=== PATIENT | female | born 1985 | race Caucasian/White ===

== ENCOUNTER 2019-03-06 08:17 | Emergency (ER) | payer OTHER ==
[2019-03-06 08:21] VITALS: BP 140/85; PULSE 75; RESP 16; TEMP 98
[2019-03-06] MEDS ORDERED: ACET/COD 300 MG/30 MG STARTER PACK 6 TAB BTL PO STA (08:36)
--- NOTE | 2019-03-06 08:36 | ED ---
Back Pain HPI - General Chief Complaint: Back Pain/Injury Stated Complaint: back pain Time Seen by Provider: 03/06/19 08:23 Source: patient, RN notes reviewed Mode of arrival: ambulatory Limitations: no limitations - History of Present Illness Initial Comments: 34-year-old female presents emergency Department with chief complaint of low back pain. 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 Patient states that she's been working morning and noticed some low back spasms. She denies any bowel bladder and incontinence or retention. Denies any dysuria, hematuria. She has no abdominal complaints. Patient states it is better with rest and stretching. - Related Data Home Medications Medication Instructions Recorded Confirmed Cyclobenzaprine [Flexeril] 5 mg PO DAILY PRN 03/06/19 03/06/19 Previous Rx's Medication Instructions Recorded Cyclobenzaprine [Flexeril] 10 mg PO TID PRN #15 tab 03/06/19 Ibuprofen [Motrin] 800 mg PO Q6HR #30 tab 03/06/19 Allergies Allergy/AdvReac Type Severity Reaction Status Date / Time No Known Allergies Allergy Verified 03/06/19 08:46 Review of Systems ROS Statement: Those systems with pertinent positive or pertinent negative responses have been documented in the HPI. ROS Other: All systems not noted in ROS Statement are negative. Past Medical History Past Medical History: No Reported History Additional Past Medical History / Comment(s): migraines, Low back pain History of Any Multi-Drug Resistant Organisms: None Reported Past Surgical History: Section, Cholecystectomy Past Psychological History: No Psychological Hx Reported Smoking Status: Current some day smoker Past Alcohol Use History: None Reported Past Drug Use History: None Reported General Exam Limitations: no limitations General appearance: alert, in no apparent distress Head exam: Present: atraumatic, normocephalic, normal inspection Respiratory exam: Present: normal lung sounds bilaterally. Absent: respiratory distress, wheezes, rales, rhonchi, stridor Cardiovascular Exam: Present: regular rate, normal rhythm, normal heart sounds. Absent: systolic murmur, diastolic murmur, rubs, gallop, clicks GI/Abdominal exam: Present: soft, normal bowel sounds. Absent: distended, tenderness, guarding, rebound, rigid Extremities exam: Present: other (Lower extremity strength equal bilaterally, neurovascular intact with equal pedal pulses) Back exam: Present: full ROM, tenderness, muscle spasm, paraspinal tenderness, other (Mild discomfort with left straight leg raise). Absent: vertebral tenderness Neurological exam: Present: alert, oriented X3, CN II-XII intact, reflexes normal. Absent: motor sensory deficit Course Vital Signs 03/06/19 08:19 Temperature 98 F Pulse Rate 75 Respiratory 16 Rate Blood Pressure 140/85 O2 Sat by Pulse 98 Oximetry Medical Decision Making - Medical Decision Making 34-year-old female presented for low back pain. She has notable muscle spasms and paraspinal tenderness. This is consistent with a lumbar strain she has no red flag symptoms. Patient will started on conservative treatment with close follow-up. Disposition Clinical Impression: Strain of lumbar region Disposition: HOME SELF-CARE Condition: Stable Instructions (If sedation given, give patient instructions): Acute Low Back Pain (ED) Additional Instructions: Please return to the Emergency Department if symptoms worsen or any other concerns. Prescriptions: Cyclobenzaprine [Flexeril] 10 mg PO TID PRN #15 tab PRN Reason: Muscle Spasm Ibuprofen [Motrin] 800 mg PO Q6HR #30 tab Is patient prescribed a controlled substance at d/c from ED?: No Referrals: Marianela Dominguez MD [Primary Care Provider] - 1-2 days Time of Disposition: 08:35
== END 2019-03-06 08:42 | disposition home or self-care (01) ==
LOC: MERGE 08:17 → EC 08:17
DX: S39.012A Strain of muscle, fascia and tendon of lower back, initial encounter (principal); F17.200 Nicotine dependence, unspecified, uncomplicated
CPT/HCPCS: 99283

== ENCOUNTER 2019-05-25 10:02 | Emergency (ER) | payer OTHER ==
[2019-05-25 10:27] VITALS: BP 124/78; PULSE 69; RESP 16; TEMP 98.4
[2019-05-25] MEDS ORDERED: KETOROLAC 30 MG/ML 1 ML VIAL IM STA (10:41)
--- NOTE | 2019-05-25 10:43 | ED ---
Lower Extremity Injury HPI - General Chief Complaint: Extremity Injury, Lower Stated Complaint: Ankle Pain Time Seen by Provider: 05/25/19 10:29 Source: patient, RN notes reviewed, old records reviewed Mode of arrival: ambulatory Limitations: no limitations - History of Present Illness Initial Comments: Patient is a 34-year-old female, she presents emergency department today for evaluation for left ankle and foot pain has been chronic for 5 years. Patient reports she's had no recent falls or trauma. Patient states that she's been seen multiple times for the same thing. She has not followed up with orthopedic. Patient was last here in November of this year with complaints ankle pain. Patient states that she has an upcoming appointment with her primary care doctor who was with the set up referrals to see orthopedic. Patient states that she's not been wearing an Aurelio wrap or compression stocking and she was told prior 2. Patient states that her Motrin 600s are not helping and she is hoping for a prescription for Motrin 800s. Patient states that she has had no other significant complaints at this time. Denies stepping on anything. Patient states that she has a note for work today. - Related Data Home Medications Medication Instructions Recorded Confirmed Cyclobenzaprine [Flexeril] 5 mg PO DAILY PRN 03/06/19 03/06/19 Previous Rx's Medication Instructions Recorded Cyclobenzaprine [Flexeril] 10 mg PO TID PRN #15 tab 03/06/19 Ibuprofen [Motrin] 800 mg PO Q6HR #30 tab 03/06/19 Ibuprofen 800 mg PO TID #30 tablet 05/25/19 Allergies Allergy/AdvReac Type Severity Reaction Status Date / Time No Known Allergies Allergy Verified 05/25/19 10:27 Review of Systems ROS Statement: Those systems with pertinent positive or pertinent negative responses have been documented in the HPI. ROS Other: All systems not noted in ROS Statement are negative. Past Medical History Past Medical History: No Reported History Additional Past Medical History / Comment(s): migraines, Low back pain History of Any Multi-Drug Resistant Organisms: None Reported Past Surgical History: Section, Cholecystectomy Past Psychological History: No Psychological Hx Reported Smoking Status: Current some day smoker Past Alcohol Use History: None Reported Past Drug Use History: None Reported General Exam - General Exam Comments Initial Comments: 34-year-old female. Alert and oriented 3. No distress. Limitations: no limitations General appearance: alert, in no apparent distress Head exam: Present: atraumatic, normocephalic, normal inspection Eye exam: Present: normal appearance, PERRL, EOMI. Absent: scleral icterus, conjunctival injection, periorbital swelling ENT exam: Present: normal exam, mucous membranes moist Neck exam: Present: normal inspection. Absent: tenderness, meningismus, lymphadenopathy Respiratory exam: Present: normal lung sounds bilaterally. Absent: respiratory distress, wheezes, rales, rhonchi, stridor Cardiovascular Exam: Present: regular rate, normal rhythm, normal heart sounds. Absent: systolic murmur, diastolic murmur, rubs, gallop, clicks GI/Abdominal exam: Present: soft, normal bowel sounds. Absent: distended, tenderness, guarding, rebound, rigid Left Lower Leg exam: Present: normal inspection, full ROM. Absent: abrasion Ankle exam: Present: full ROM, swelling (Patient has minimal swelling over the lateral malleolus. Patient has no ecchymosis. Full range of motion of the toes and ankle.). Absent: normal inspection Foot/Toe exam: Present: normal inspection, full ROM Back exam: Present: normal inspection Neurological exam: Present: alert, oriented X3, CN II-XII intact Psychiatric exam: Present: normal affect, normal mood Skin exam: Present: warm, dry, intact, normal color. Absent: rash Course Vital Signs 05/25/19 10:24 Temperature 98.4 F Pulse Rate 69 Respiratory 16 Rate Blood Pressure 124/78 O2 Sat by Pulse 97 Oximetry Medical Decision Making - Medical Decision Making Patient is a 34-year-old female presents emergency department today with intermittent and chronic left ankle and foot pain. Patient reports that she isn't having this pain off and on for 5 years. Denies any fall or trauma. 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 Patient at this time states that she has not followed up with family development extension specialist that she was instructed to on her last multiple visits to ER. Patient states that she see her primary care doctor next week for hopeful referral. Patient at this time has no history of trauma. Discussed that x-rays are not, showing any further change in this time without any new fall or trauma. Discussed the Patient needs to follow-up with orthopedic for chronic pain was in the ankle. Patient moved given Aurelio wrap, Motrin 800s. Given IM Toradol this time. I discussed that she can return to the emergency department if any alarming signs or symptoms occur. She also requests a work note. All questions were answered her parents were discussed. Disposition Clinical Impression: Chronic pain of left ankle Disposition: HOME SELF-CARE Condition: Good Instructions (If sedation given, give patient instructions): Ankle Sprain (ED), Swollen Joint (ED), Arthralgia (ED) Additional Instructions: Patient is to rest, ice, wear the compression stockings, and elevate the ankle. Patient to take Motrin for pain. Patient should follow-up with family development extension specialist as discussed. Return to the emergency department if any alarming signs or symptoms occur. Prescriptions: Ibuprofen 800 mg PO TID #30 tablet Is patient prescribed a controlled substance at d/c from ED?: No Referrals: Marianela Dominguez MD [Primary Care Provider] - 1-2 days Clive Birch MD [Medical Doctor] - 1-2 days Time of Disposition: 10:42
== END 2019-05-25 11:00 | disposition home or self-care (01) ==
LOC: EC 10:02
DX: G89.29 Other chronic pain (principal); M25.572 Pain in left ankle and joints of left foot; F17.200 Nicotine dependence, unspecified, uncomplicated
CPT/HCPCS: 99283; 96372; J1885

== ENCOUNTER 2019-05-31 16:59 | Emergency (ER) | payer OTHER ==
[2019-05-31 17:07] VITALS: BP 128/81; PULSE 80; RESP 16; TEMP 98.1
[2019-05-31] MEDS ORDERED: POLYMYXIN B-TRIMETHOPRIM SULF (10,000-1) OPHTH DROPS 10 ML BTL RIGHT EYE STA (17:20)
[2019-05-31] MEDS ORDERED: AMOXIC-POT CLAV 875-125MG 1 EACH TAB PO STA (17:20)
--- NOTE | 2019-05-31 17:22 | ED ---
Eye Problem HPI - General Chief complaint: Eye Problems Stated complaint: eye infection Time Seen by Provider: 05/31/19 17:10 Source: patient Mode of arrival: ambulatory Limitations: no limitations - History of Present Illness Initial comments: This is a 32-year-old female the ER for evaluation patient coming of her right eye pain blurry vision some drainage today. Patient woke up with the symptoms that progressed. She also swelling around the eye to her eyelids and leave that she had some drainage from the lateral aspect of the eye. No significant changes or vision loss no severe pain or itching. No fevers. No cough or congestion. Patient denies history of similar complaints does not look contacts MD chief complaint: eye pain (Right eye), other (Blurry vision drainage and swelling) -: hour(s) Onset Description: gradual Location: right eye Place: home If Injury: none Eye Symptoms: burning, redness, itching, discharge, blurry vision Severity: mild Severity scale (1-10): 2 If Pain, Quality: burning Consistency: intermittent Associated Symptoms: none Treatments Prior to Arrival: none - Related Data Home Medications Medication Instructions Recorded Confirmed Ibuprofen [Motrin] 800 mg PO Q6HR PRN 05/31/19 05/31/19 Previous Rx's Medication Instructions Recorded Amoxic-Pot Clav 875-125Mg 1 tab PO Q12HR #20 tablet 05/31/19 [Augmentin 875-125] Allergies Allergy/AdvReac Type Severity Reaction Status Date / Time No Known Allergies Allergy Verified 05/31/19 17:17 Review of Systems ROS Statement: Those systems with pertinent positive or pertinent negative responses have been documented in the HPI. ROS Other: All systems not noted in ROS Statement are negative. Past Medical History Past Medical History: No Reported History Additional Past Medical History / Comment(s): migraines, Low back pain History of Any Multi-Drug Resistant Organisms: None Reported Past Surgical History: Section, Cholecystectomy Past Psychological History: No Psychological Hx Reported Smoking Status: Current every day smoker Past Alcohol Use History: None Reported Past Drug Use History: None Reported General Exam Limitations: no limitations General appearance: alert, in no apparent distress Head exam: Present: atraumatic, normocephalic, normal inspection Eye exam: Present: normal appearance, PERRL, EOMI. Absent: scleral icterus, conjunctival injection, periorbital swelling Pupils: Present: other (Right eye does have some drainage and swelling, no tenderness ptosis no loss of vision) ENT exam: Present: normal exam, mucous membranes moist Neck exam: Present: normal inspection. Absent: tenderness, meningismus, lymphadenopathy Respiratory exam: Present: normal lung sounds bilaterally. Absent: respiratory distress, wheezes, rales, rhonchi, stridor Cardiovascular Exam: Present: regular rate, normal rhythm, normal heart sounds. Absent: systolic murmur, diastolic murmur, rubs, gallop, clicks GI/Abdominal exam: Present: soft, normal bowel sounds. Absent: distended, tenderness, guarding, rebound, rigid Extremities exam: Present: normal inspection, full ROM, normal capillary refill. Absent: tenderness, pedal edema, joint swelling, calf tenderness Back exam: Present: normal inspection Neurological exam: Present: alert, oriented X3, CN II-XII intact Psychiatric exam: Present: normal affect, normal mood Skin exam: Present: warm, dry, intact, normal color. Absent: rash Course Vital Signs 05/31/19 17:05 Temperature 98.1 F Pulse Rate 80 Respiratory 16 Rate Blood Pressure 128/81 O2 Sat by Pulse 98 Oximetry - Reevaluation(s) Reevaluation #1: 05/31/19 17:40 Medical records reviewed Reevaluation #2: 05/31/19 17:40 Patient given instructions return to ED if vision changes Medical Decision Making - Medical Decision Making 32 female the ER for evaluation right eye pain and swelling. No fevers. No proptosis. ExtraOCularMotion is full range of motion normal, patient given drops and antibiotics and can be discharged home Disposition Clinical Impression: Bacterial conjunctivitis, Preseptal cellulitis of right eye, Edema of right orbit, Conjunctivitis, right eye Disposition: HOME SELF-CARE Condition: Good Instructions (If sedation given, give patient instructions): Periorbital Cellulitis in Adults (ED), Conjunctivitis (ED) Prescriptions: Amoxic-Pot Clav 875-125Mg [Augmentin 875-125] 1 tab PO Q12HR #20 tablet Is patient prescribed a controlled substance at d/c from ED?: No Referrals: Marianela Dominugez MD [Primary Care Provider] - 1-2 days
== END 2019-05-31 17:45 | disposition home or self-care (01) ==
LOC: EC 16:59
DX: L03.213 Periorbital cellulitis (principal); H10.89 Other conjunctivitis; H05.221 Edema of right orbit; F17.200 Nicotine dependence, unspecified, uncomplicated
CPT/HCPCS: 99283

== ENCOUNTER 2019-06-11 16:02 | Emergency (ER) | payer OTHER ==
[2019-06-11] MEDS ORDERED: SODIUM CHLORIDE 0.9% 1,000 ML IV STA (17:14)
--- NOTE | 2019-06-11 17:16 | ED ---
Dizziness HPI - General Chief Complaint: Dizziness Stated Complaint: dizzy Time Seen by Provider: 06/11/19 16:30 Source: patient, RN notes reviewed, old records reviewed Mode of arrival: ambulatory Limitations: no limitations - History of Present Illness Initial Comments: This is a 34-year-old female the ER for evaluation shortness a for evaluation regards to chest pain. Patient is nonverbal. This feels lightheaded and dizzy. Patient does admit to being a plasma donor. She states she is about 2 times a week she also gives 1. Since then her symptoms have progressed) versus not herself. No fevers or no chills noted. No chest pain abdominal pain, no nausea vomiting or diaphoresis. MD Complaint: dizziness, lightheadedness -: days(s) Timing: gradual onset Description: lightheadedness History of Same: Yes History of Trauma: No Severity: mild Improves With: remaining still Worsens With: movement Associated Symptoms: denies other symptoms - Related Data Home Medications Medication Instructions Recorded Confirmed Ibuprofen [Motrin] 800 mg PO Q6HR PRN 05/31/19 06/11/19 Escitalopram [Lexapro] 5 mg PO DAILY 06/11/19 06/11/19 Qud-Mbrt-Rtzuc Acid 1 cap PO HS 06/11/19 06/11/19 [-U Capsule (formulary)] Previous Rx's Medication Instructions Recorded Amoxic-Pot Clav 875-125Mg 1 tab PO Q12HR #20 tablet 05/31/19 [Augmentin 875-125] Nitrofurantoin Monohyd/M-Cryst 100 mg PO Q12HR #10 cap 06/11/19 [Macrobid] Allergies Allergy/AdvReac Type Severity Reaction Status Date / Time No Known Allergies Allergy Verified 06/11/19 16:53 Review of Systems ROS Statement: Those systems with pertinent positive or pertinent negative responses have been documented in the HPI. ROS Other: All systems not noted in ROS Statement are negative. Past Medical History Past Medical History: No Reported History Additional Past Medical History / Comment(s): migraines, Low back pain History of Any Multi-Drug Resistant Organisms: None Reported Past Surgical History: Section, Cholecystectomy Past Psychological History: No Psychological Hx Reported Smoking Status: Current every day smoker Past Alcohol Use History: None Reported Past Drug Use History: None Reported General Exam Limitations: no limitations General appearance: alert, in no apparent distress Head exam: Present: atraumatic, normocephalic, normal inspection Eye exam: Present: normal appearance, EOMI. Absent: scleral icterus, conjunctival injection, periorbital swelling ENT exam: Present: normal exam, mucous membranes moist Neck exam: Present: normal inspection. Absent: tenderness, meningismus, lymphadenopathy Respiratory exam: Present: normal lung sounds bilaterally. Absent: respiratory distress, wheezes, rales, rhonchi, stridor Cardiovascular Exam: Present: regular rate, normal rhythm, normal heart sounds. Absent: systolic murmur, diastolic murmur, rubs, gallop, clicks GI/Abdominal exam: Present: soft, normal bowel sounds. Absent: distended, tenderness, guarding, rebound, rigid Extremities exam: Present: normal inspection, full ROM, normal capillary refill. Absent: tenderness, pedal edema, joint swelling, calf tenderness Back exam: Present: normal inspection Neurological exam: Present: alert, oriented X3, CN II-XII intact Psychiatric exam: Present: normal affect, normal mood Skin exam: Present: warm, dry, intact, normal color. Absent: rash Course Vital Signs 06/11/19 06/11/19 06/11/19 16:13 17:31 18:00 Temperature 98.2 F Pulse Rate 75 67 63 Respiratory 16 16 16 Rate Blood Pressure 111/62 130/55 O2 Sat by Pulse 99 100 98 Oximetry 06/11/19 06/11/19 19:00 19:44 Temperature 97.9 F Pulse Rate 61 62 Respiratory 18 18 Rate Blood Pressure 98/55 102/52 O2 Sat by Pulse 98 98 Oximetry - Reevaluation(s) Reevaluation #1: 06/11/19 17:16 Medical record is reviewed EKG Findings - EKG Comments: EKG Findings:: EKG shows sinus rhythm is a 22-year-old Bengali 0346, QTc 426 Medical Decision Making - Medical Decision Making 34 female with dizziness and lightheadedness, symptoms likely from recurrent plasma donation as well as deterioration. Patient symptoms are resolving can be discharged patient does have urinary tract infection on UA, patient be discharged on antibiotics - Lab Data Result diagrams: 06/11/19 17:27 06/11/19 17:27 Lab Results 06/11/19 06/11/19 06/11/19 Range/Units 17:27 17:27 19:02 WBC 14.3 H (3.8-10.6) k/uL RBC 5.06 (3.80-5.40) m/uL Hgb 15.8 (11.4-16.0) gm/dL Hct 50.1 H (34.0-46.0) % MCV 99.0 (80.0-100.0) fL MCH 31.3 (25.0-35.0) pg MCHC 31.7 (31.0-37.0) g/dL RDW 12.5 (11.5-15.5) % Plt Count 203 (150-450) k/uL Neutrophils % 74 % Lymphocytes % 19 % Monocytes % 4 % Eosinophils % 3 % Basophils % 1 % Neutrophils # 10.5 H (1.3-7.7) k/uL Lymphocytes # 2.7 (1.0-4.8) k/uL Monocytes # 0.5 (0-1.0) k/uL Eosinophils # 0.4 (0-0.7) k/uL Basophils # 0.1 (0-0.2) k/uL Sodium 139 (137-145) mmol/L Potassium 4.4 (3.5-5.1) mmol/L Chloride 105 (98-107) mmol/L Carbon Dioxide 29 (22-30) mmol/L Anion Gap 5 mmol/L BUN 15 (7-17) mg/dL Creatinine 0.74 (0.52-1.04) mg/dL Est GFR (CKD-EPI)AfAm >90 (>60 ml/min/1.73 sqM) Est GFR (CKD-EPI)NonAf >90 (>60 ml/min/1.73 sqM) Glucose 98 (74-99) mg/dL Calcium 8.6 (8.4-10.2) mg/dL Phosphorus 3.8 (2.5-4.5) mg/dL Magnesium 2.1 (1.6-2.3) mg/dL Total Bilirubin 0.3 (0.2-1.3) mg/dL AST 21 (14-36) U/L ALT 27 (9-52) U/L Alkaline Phosphatase 48 (38-126) U/L Total Protein 5.9 L (6.3-8.2) g/dL Albumin 3.7 (3.5-5.0) g/dL Urine Color Yellow Urine Appearance Cloudy H (Clear) Urine pH 5.0 (5.0-8.0) Ur Specific [place] 1.024 (1.001-1.035) Urine Protein Negative (Negative) Urine Glucose (UA) Negative (Negative) Urine Ketones Negative (Negative) Urine Blood Negative (Negative) Urine Nitrite Negative (Negative) Urine Bilirubin Negative (Negative) Urine Urobilinogen <2.0 (<2.0) mg/dL Ur Leukocyte Esterase Large H (Negative) Urine RBC 1 (0-5) /hpf Urine WBC 35 H (0-5) /hpf Ur Squamous Epith Cells 11 H (0-4) /hpf Amorphous Sediment Rare H (None) /hpf Urine Bacteria Occasional H (None) /hpf Urine Mucus Few H (None) /hpf Disposition Clinical Impression: Dehydration, Dizziness, UTI (urinary tract infection) Disposition: HOME SELF-CARE Condition: Good Instructions (If sedation given, give patient instructions): Dizziness (ED), Urinary Tract Infection in Women (ED) Prescriptions: Nitrofurantoin Monohyd/M-Cryst [Macrobid] 100 mg PO Q12HR #10 cap Is patient prescribed a controlled substance at d/c from ED?: No Referrals: Marianela Dominguez MD [Primary Care Provider] - 1-2 days
[2019-06-11 17:40] LABS: Basophils # (A) 0.1 k/uL (0-0.2); Basophils % (A) 1 %; Eosinophils # (A) 0.4 k/uL (0-0.7); Eosinophils % (A) 3 %; HCT 50.1 % (34.0-46.0); HGB 15.8 gm/dL (11.4-16.0); Lymphocytes # (A) 2.7 k/uL (1.0-4.8); Lymphocytes % (A) 19 %; MCH 31.3 pg (25.0-35.0); MCHC 31.7 g/dL (31.0-37.0); Monocytes # (A) 0.5 k/uL (0-1.0); Monocytes % (A) 4 %; Neutrophils # (A) 10.5 k/uL (1.3-7.7); Neutrophils % (A) 74 %; Platelet Count 203 k/uL (150-450); RBC 5.06 m/uL (3.80-5.40); RDW 12.5 % (11.5-15.5); WBC 14.3 k/uL (3.8-10.6)
[2019-06-11 17:50] LABS: ALT 27 U/L (9-52); AST 21 U/L (14-36); African American GFR (CKD) >90 (>60 ml/min/1.73 sqM); Albumin 3.7 g/dL (3.5-5.0); Alkaline Phosphatase 48 U/L (38-126); Anion Gap 5 mmol/L; Blood Urea Nitrogen 15 mg/dL (7-17); Calcium 8.6 mg/dL (8.4-10.2); Carbon Dioxide 29 mmol/L (22-30); Chloride 105 mmol/L (98-107); Glucose 98 mg/dL (74-99); Magnesium 2.1 mg/dL (1.6-2.3); Phosphorus 3.8 mg/dL (2.5-4.5); Potassium 4.4 mmol/L (3.5-5.1); Sodium 139 mmol/L (137-145); Total Bilirubin 0.3 mg/dL (0.2-1.3); Total Protein 5.9 g/dL (6.3-8.2)
[2019-06-11 19:03] VITALS: RESP 18
[2019-06-11 19:46] VITALS: BP 102/52; PULSE 62; TEMP 97.9
[2019-06-11 19:55] LABS: Amorphous Sediment,Urine Rare /hpf; Appearance,Urine Cloudy (Clear); Bacteria,Urine Occasional /hpf; Bilirubin,Urine Negative (Negative); Blood,Urine Negative (Negative); Color,Urine Yellow; Glucose,Urine (UA) Negative (Negative); Ketones,Urine Negative (Negative); Leukocyte Esterase,Urine Large (Negative); Mucus,Urine Few /hpf; Nitrite,Urine Negative (Negative); Protein,Urine Negative (Negative); RBC,Urine 1 /hpf (0-5); Specific Gravity,Urine 1.024 (1.001-1.035); Squamous Epithelial Cell,Urine 11 /hpf (0-4); Urobilinogen,Urine <2.0 mg/dL (<2.0); WBC,Urine 35 /hpf (0-5)
[2019-06-11] MEDS ORDERED: cefTRIAXone IN SWFI 1,000 MG/10 ML SYRINGE IVP STA (20:00)
== END 2019-06-11 20:38 | disposition home or self-care (01) ==
LOC: EC 16:02
DX: E86.0 Dehydration (principal); N39.0 Urinary tract infection, site not specified; R07.9 Chest pain, unspecified; F17.200 Nicotine dependence, unspecified, uncomplicated
CPT/HCPCS: 36415; 93005; 80053; 83735; 84100; 85025; 81001; 99284; 96374; 96361 ×3; J0696

== ENCOUNTER → 2019-06-26 | Outpatient (CLI) | payer OTHER ==
--- NOTE | 2019-06-26 08:12 | US ---
EXAMINATION TYPE: US pelvic complete DATE OF EXAM: 06/26/2019 COMPARISON: NONE CLINICAL HISTORY: N92.6 ABN MENSES,N94.6 PAINFUL MENSTRAL PERIODS. TECHNIQUE: Transvaginal (TV) and Transabdominal (TA) . Transabdominal sonographic images of the pel vis were acquired. Transvaginal sonographic images were medically necessary to better assess the fol lowing anatomy: Uterus Date of LMP: 06/19/19 EXAM MEASUREMENTS: Uterus: 10.1 x 4.8 x 3.8 cm Endometrial Stripe: 0.3 cm Right Ovary: 3.8 x 2.9 x 1.4 cm Left Ovary: 2.6 x 3.3 x 2.1 cm 1. Uterus: Anteverted Large in size, multiple cervical cysts. Largest = 1.2 x 1.4 x 1.1 cm 2. Endometrium: wnl 3. Right Ovary: with follicles. Largest = 1.1 x 1.0 x 1.0 cm 4. Left Ovary: With follicles. 5. Bilateral Adnexa: wnl 6. Posterior cul-de-sac: wnl Difficult to evaluate ovaries on transvaginal exam. IMPRESSION: 1. Bilateral ovarian follicles. 2. Multiple cervical nabothian cysts.
== END | disposition home or self-care (01) ==
LOC: RADUSWWP 06:53
PROVIDERS: ATTEND Family Medicine
DX: N88.8 Other specified noninflammatory disorders of cervix uteri (principal); N83.01 Follicular cyst of right ovary; N83.02 Follicular cyst of left ovary; N94.6 Dysmenorrhea, unspecified
CPT/HCPCS: 76830; 76856

== ENCOUNTER 2019-07-05 15:51 | Emergency (ER) | payer OTHER ==
[2019-07-05 15:58] VITALS: BP 110/70; PULSE 84; RESP 18; TEMP 99.1
[2019-07-05] MEDS ORDERED: KETOROLAC 60 MG/2 ML VIAL IM STA (16:07)
--- NOTE | 2019-07-05 16:11 | ED ---
Back Pain HPI - General Chief Complaint: Back Pain/Injury Stated Complaint: Back pain Time Seen by Provider: 07/05/19 16:04 Source: patient, RN notes reviewed Limitations: no limitations - History of Present Illness Initial Comments: 34-year-old female presents emergency Department chief complaint low back pain. Patient states that the pain started last couple days. Patient felt that she injured it at work. She works as a integrated marketing specialist. Denies any bowel bladder incontinence or retention. Denies any saddle anesthesias. Patient states that it's in her left low back. Patient has not taken any medications for this. She states that she's received Toradol the past and this greatly helped. - Related Data Home Medications Medication Instructions Recorded Confirmed Ibuprofen [Motrin] 800 mg PO Q6HR PRN 05/31/19 06/11/19 Escitalopram [Lexapro] 5 mg PO DAILY 06/11/19 06/11/19 Mbp-Evac-Xjwyd Acid 1 cap PO HS 06/11/19 06/11/19 [-U Capsule (formulary)] Previous Rx's Medication Instructions Recorded Amoxic-Pot Clav 875-125Mg 1 tab PO Q12HR #20 tablet 05/31/19 [Augmentin 875-125] Nitrofurantoin Monohyd/M-Cryst 100 mg PO Q12HR #10 cap 06/11/19 [Macrobid] Cyclobenzaprine [Flexeril] 10 mg PO TID PRN #15 tab 07/05/19 Ibuprofen [Motrin] 600 mg PO Q8HR PRN #30 tab 07/05/19 Allergies Allergy/AdvReac Type Severity Reaction Status Date / Time No Known Allergies Allergy Verified 07/05/19 15:58 Review of Systems ROS Statement: Those systems with pertinent positive or pertinent negative responses have been documented in the HPI. ROS Other: All systems not noted in ROS Statement are negative. Past Medical History Past Medical History: No Reported History Additional Past Medical History / Comment(s): migraines, Low back pain History of Any Multi-Drug Resistant Organisms: None Reported Past Surgical History: Section, Cholecystectomy Past Psychological History: No Psychological Hx Reported Smoking Status: Current every day smoker Past Alcohol Use History: None Reported Past Drug Use History: None Reported General Exam Limitations: no limitations General appearance: alert, in no apparent distress Head exam: Present: atraumatic, normocephalic, normal inspection ENT exam: Present: normal exam, mucous membranes moist Neck exam: Present: normal inspection, full ROM. Absent: tenderness, meningismus, lymphadenopathy Respiratory exam: Present: normal lung sounds bilaterally. Absent: respiratory distress, wheezes, rales, rhonchi, stridor Cardiovascular Exam: Present: regular rate, normal rhythm, normal heart sounds. Absent: systolic murmur, diastolic murmur, rubs, gallop, clicks GI/Abdominal exam: Present: soft, normal bowel sounds. Absent: distended, tenderness, guarding, rebound, rigid Extremities exam: Present: other (Lower extremity strength equal bilaterally neurovascular intact) Back exam: Present: normal inspection, full ROM, tenderness (Mild left lower), paraspinal tenderness. Absent: vertebral tenderness Neurological exam: Present: alert, oriented X3, CN II-XII intact, reflexes normal. Absent: motor sensory deficit Course Vital Signs 07/05/19 15:56 Temperature 99.1 F Pulse Rate 84 Respiratory 18 Rate Blood Pressure 110/70 O2 Sat by Pulse 100 Oximetry Medical Decision Making - Medical Decision Making 34-year-old female presented for low back pain. Patient is a typical lumbar strain with no red flag symptoms. Patient is given Toradol will be discharged with medications return parameters were discussed. We did discuss daily stretching. - Lab Data Lab Results 07/05/19 07/05/19 Range/Units 16:11 16:11 Urine Color Yellow Urine Appearance Clear (Clear) Urine pH 5.0 (5.0-8.0) Ur Specific [place] 1.024 (1.001-1.035) Urine Protein Negative (Negative) Urine Glucose (UA) Negative (Negative) Urine Ketones Negative (Negative) Urine Blood Negative (Negative) Urine Nitrite Negative (Negative) Urine Bilirubin Negative (Negative) Urine Urobilinogen <2.0 (<2.0) mg/dL Ur Leukocyte Esterase Large H (Negative) Urine RBC 1 (0-5) /hpf Urine WBC 3 (0-5) /hpf Ur Squamous Epith Cells 2 (0-4) /hpf Urine Mucus Rare H (None) /hpf Urine HCG, Qual Not Detected (Not Detectd) Disposition Clinical Impression: Strain of lumbar region Disposition: HOME SELF-CARE Condition: Stable Instructions (If sedation given, give patient instructions): Acute Low Back Pain (ED) Additional Instructions: Please return to the Emergency Department if symptoms worsen or any other concerns. Prescriptions: Cyclobenzaprine [Flexeril] 10 mg PO TID PRN #15 tab PRN Reason: Muscle Spasm Ibuprofen [Motrin] 600 mg PO Q8HR PRN #30 tab PRN Reason: Pain Is patient prescribed a controlled substance at d/c from ED?: No Referrals: Marianela Dominguez MD [Primary Care Provider] - 1-2 days Time of Disposition: 16:11
[2019-07-05 16:20] LABS: Appearance,Urine Clear (Clear); Bilirubin,Urine Negative (Negative); Blood,Urine Negative (Negative); Color,Urine Yellow; Glucose,Urine (UA) Negative (Negative); Ketones,Urine Negative (Negative); Leukocyte Esterase,Urine Large (Negative); Mucus,Urine Rare /hpf; Nitrite,Urine Negative (Negative); Protein,Urine Negative (Negative); RBC,Urine 1 /hpf (0-5); Specific Gravity,Urine 1.024 (1.001-1.035); Squamous Epithelial Cell,Urine 2 /hpf (0-4); Urobilinogen,Urine <2.0 mg/dL (<2.0)
[2019-07-05] MEDS ORDERED: ACET/COD 300 MG/30 MG STARTER PACK 6 TAB BTL PO STA (16:35)
== END 2019-07-05 16:57 | disposition home or self-care (01) ==
LOC: EC 15:51
DX: S39.012A Strain of muscle, fascia and tendon of lower back, initial encounter (principal); F17.200 Nicotine dependence, unspecified, uncomplicated; Z79.899 Other long term (current) drug therapy; X58.XXXA Exposure to other specified factors, initial encounter
CPT/HCPCS: 81001; 81025; 99283; 96372; J1885

== ENCOUNTER 2019-07-20 09:48 | Emergency (ER) | payer OTHER ==
[2019-07-20 10:00] VITALS: TEMP 97.3
--- NOTE | 2019-07-20 10:12 | ED ---
URI HPI - General Chief Complaint: Upper Respiratory Infection Stated Complaint: chest congestion/wheezing Time Seen by Provider: 07/20/19 10:05 Source: patient Mode of arrival: ambulatory Limitations: no limitations - History of Present Illness Initial Comments: Patient is a 34-year-old female presenting to the emergency Department with complaints of a cough 3 days. Patient states she feels like she has been wheezing for the past month but then approximately 3-4 days ago she started having a cough, nasal congestion, phlegm production. Patient states her phlegm is green to yellow colored. Patient denies any fever, chills, nausea, vomiting, diarrhea. Patient denies shortness of breath. Patient does admit to being every day smoker. She has tried nscz-[id number]-[id number] medication for her symptoms however it is not helping. Patient has no other complaints today. Upon arrival to ER, her vital signs are stable. - Related Data Home Medications Medication Instructions Recorded Confirmed Ibuprofen [Motrin] 800 mg PO Q6HR PRN 05/31/19 07/05/19 Escitalopram [Lexapro] 5 mg PO DAILY 06/11/19 07/05/19 Cjh-Ilig-Dpwmq Acid 1 cap PO HS 06/11/19 07/05/19 [-U Capsule (formulary)] Previous Rx's Medication Instructions Recorded Cyclobenzaprine [Flexeril] 10 mg PO TID PRN #15 tab 07/05/19 Ibuprofen [Motrin] 600 mg PO Q8HR PRN #30 tab 07/05/19 methylPREDNISolone [Medrol Dose 4 mg PO DIRECTED #1 pack 07/20/19 Pack] Allergies Allergy/AdvReac Type Severity Reaction Status Date / Time No Known Allergies Allergy Verified 07/20/19 10:00 Review of Systems ROS Statement: Those systems with pertinent positive or pertinent negative responses have been documented in the HPI. ROS Other: All systems not noted in ROS Statement are negative. Past Medical History Past Medical History: No Reported History Additional Past Medical History / Comment(s): migraines, Low back pain History of Any Multi-Drug Resistant Organisms: None Reported Past Surgical History: Section, Cholecystectomy Past Psychological History: No Psychological Hx Reported Smoking Status: Current some day smoker Past Alcohol Use History: None Reported Past Drug Use History: None Reported General Exam - General Exam Comments Initial Comments: GENERAL: Well-appearing, well-nourished and in no acute distress. HEAD: Atraumatic, normocephalic. EYES: Pupils equal round and reactive to light, extraocular movements intact, sclera anicteric, conjunctiva are normal. ENT: TMs normal, nares patent, oropharynx clear without exudates. Moist mucous membranes. NECK: Normal range of motion, supple without lymphadenopathy or JVD. LUNGS: Breath sounds clear to auscultation bilaterally and equal. No wheezes rales or rhonchi. HEART: Regular rate and rhythm without murmurs, rubs or gallops. ABDOMEN: Soft, nontender, normoactive bowel sounds. No guarding, no rebound. No masses appreciated. EXTREMITIES: Normal range of motion, no pitting or edema. No clubbing or cyanosis. PSYCH: Normal mood, normal affect. SKIN: Warm, Dry, normal turgor, no rashes or lesions noted. Limitations: no limitations Course Vital Signs 07/20/19 09:56 Temperature 97.3 F L Pulse Rate 66 Respiratory 18 Rate Blood Pressure 126/64 O2 Sat by Pulse 95 Oximetry Medical Decision Making - Medical Decision Making Patient is a 34-year-old female presenting with a cough and upper respiratory type symptoms for 3 days. No fever, chills. Vital signs are stable upon arrival. Exam is unremarkable today. Chest x-ray reveals no acute a bnormalities. Discussed with patient this is most likely bronchitis or viral upper respiratory infection. Patient will be placed on steroids for her cough. Patient will continue with idrw-rjx-vtishpe cough medication. Patient is stable for discharge at this time and she is in agreement with this plan of care. Return parameters were discussed with the patient she verbalized understanding. Discussed with patient to stop smoking. Work note was given for today. Case discussed with Dr. Campbell. Disposition Clinical Impression: Bronchitis Disposition: HOME SELF-CARE Condition: Stable Instructions (If sedation given, give patient instructions): Acute Bronchitis (ED) Additional Instructions: Please return to the Emergency Department if symptoms worsen or any other concerns. Take steroids as prescribed. Follow-up with PCP as symptoms persist. Prescriptions: methylPREDNISolone [Medrol Dose Pack] 4 mg PO DIRECTED #1 pack Is patient prescribed a controlled substance at d/c from ED?: No Referrals: Marianela Dominguez MD [Primary Care Provider] - 1-2 days
--- NOTE | 2019-07-20 10:36 | XR ---
EXAMINATION TYPE: XR chest 2V DATE OF EXAM ORDERED: 07/20/2019 HISTORY: cough, wheezing x 1 month. REFERENCE: None. FINDINGS: The lungs are clear. Pleural spaces are clear. Heart size is normal. IMPRESSION: NORMAL CHEST.
[2019-07-20 10:56] VITALS: BP 120/73; PULSE 83; RESP 16
== END 2019-07-20 10:55 | disposition home or self-care (01) ==
LOC: EC 09:48
DX: J40 Bronchitis, not specified as acute or chronic (principal); F17.200 Nicotine dependence, unspecified, uncomplicated
CPT/HCPCS: 71046; 99284

== ENCOUNTER 2019-07-31 01:37 | Emergency (ER) | payer OTHER ==
[2019-07-31 01:45] VITALS: BP 126/64; PULSE 67; RESP 18; TEMP 98.1
--- NOTE | 2019-07-31 02:20 | XR ---
EXAMINATION TYPE: XR chest 2V DATE OF EXAM: 07/31/2019 COMPARISON: 07/20/2019 HISTORY: Cough TECHNIQUE: Frontal and lateral views of the chest are obtained. FINDINGS: Heart and mediastinum are normal. Lungs are clear. Diaphragm is normal. Bony thorax appear s normal. IMPRESSION: Normal chest. No change.
--- NOTE | 2019-07-31 02:26 | ED ---
URI HPI - General Chief Complaint: Upper Respiratory Infection Stated Complaint: URI Time Seen by Provider: 07/31/19 01:55 Source: patient Mode of arrival: ambulatory Limitations: no limitations - History of Present Illness Initial Comments: 34-year-old female presenting today for chief complaint of loss of voice cough. Patient states she last week she was diagnosed with bronchitis and put on a steroid. Patient states her cough is persistent. Continues to deny fevers. Denies any rash difficulty breathing hemoptysis leg swelling. Patient denies a ny chest pain. Patient states she is now beginning to lose her voice. She states she is a slight sore throat which she believes is from coughing. Patient denies abdominal pain nausea vomiting diarrhea. Patient has no other complaints upon arrival patient appears well no signs acute distress. Obvious upper respiratory symptoms with dry cough. - Related Data Home Medications Medication Instructions Recorded Confirmed Ibuprofen [Motrin] 800 mg PO Q6HR PRN 05/31/19 07/05/19 Escitalopram [Lexapro] 5 mg PO DAILY 06/11/19 07/05/19 Aie-Nrnl-Bzyyo Acid 1 cap PO HS 06/11/19 07/05/19 [-U Capsule (formulary)] Previous Rx's Medication Instructions Recorded Cyclobenzaprine [Flexeril] 10 mg PO TID PRN #15 tab 07/05/19 Ibuprofen [Motrin] 600 mg PO Q8HR PRN #30 tab 07/05/19 methylPREDNISolone [Medrol Dose 4 mg PO DIRECTED #1 pack 07/20/19 Pack] Allergies Allergy/AdvReac Type Severity Reaction Status Date / Time No Known Allergies Allergy Verified 07/31/19 01:44 Review of Systems ROS Statement: Those systems with pertinent positive or pertinent negative responses have been documented in the HPI. ROS Other: All systems not noted in ROS Statement are negative. Past Medical History Past Medical History: No Reported History Additional Past Medical History / Comment(s): migraines, Low back pain History of Any Multi-Drug Resistant Organisms: None Reported Past Surgical History: Section, Cholecystectomy Past Psychological History: No Psychological Hx Reported Smoking Status: Current every day smoker Past Alcohol Use History: None Reported Past Drug Use History: None Reported General Exam - General Exam Comments Initial Comments: General: The patient is awake and alert, in no distress, and does not appear acutely ill. Eye: +3 mm pupils are equal, round and reactive to light, extra-ocular movements are intact. No nystagmus. There is normal conjunctiva bilaterally. No signs of icterus. No photophobia Ears, nose, mouth and throat: There are moist mucous membranes and no oral lesions. Oropharynx was not erythematous there is no tonsillar enlargement exudates or lesions. Uvula midline. Tympanic membranes are not erythematous or is no effusions bulging or retraction. No tenderness to palpation of the mastoid. No anterior cervical lymphadenopathy. Rhinorrhea, clear and bilateral nares. No tripoding, no drooling. Voice appears raspy Neck: The neck is supple, there is no tenderness or JVD. No nuchal rigidity Cardiovascular: There is a regular rate and rhythm. No murmur, rub or gallop is appreciated. Respiratory: Lungs are clear to auscultation, respirations are non-labored, breath sounds are equal. No wheezes, stridor, rales, or rhonchi. No retractions or abdominal breathing. Gastrointestinal: Soft, non-distended, non-tender abdomen without masses or organomegaly noted. There is no rebound or guarding present. Bowel sounds are unremarkable. Musculoskeletal: Normal ROM, no tenderness. Strength 5/5. Sensation intact. Radial pulses equal bilaterally 2+. Neurological: A&O x 3. CN II-XII intact grossly, There are no obvious motor or sensory deficits. Coordination appears grossly intact. Speech appears normal, no muffling. Skin: Skin is warm and dry and no rashes or lesions are noted. No extremity edema Psychiatric: Cooperative Limitations: no limitations Course Vital Signs 07/31/19 01:43 Temperature 98.1 F Pulse Rate 67 Respiratory 18 Rate Blood Pressure 126/64 O2 Sat by Pulse 97 Oximetry Medical Decision Making - Medical Decision Making 34-year-old male presenting today for chief complaint of loss of voice, cough. Chest x-ray clear lungs clear on physical examination. Patient has clinical findings of laryngitis. Most likely viral nature. No fever appears well> Will be discharged with symptomatic treatment. Return parameters discussed. Pt agreeable with plan and discharge at this time. Disposition Clinical Impression: Laryngitis, Cough Disposition: HOME SELF-CARE Condition: Good Instructions (If sedation given, give patient instructions): Laryngitis (ED) Additional Instructions: Please use medication as discussed. Please follow-up with family doctor in the next 2 days.. Please return to emergency room if the symptoms increase or worsen or for any other concerns. Is patient prescribed a controlled substance at d/c from ED?: No Referrals: Marianela Dominguez MD [Primary Care Provider] - 1-2 days Time of Disposition: 02:26
== END 2019-07-31 02:47 | disposition home or self-care (01) ==
LOC: EC 01:37
DX: J04.0 Acute laryngitis (principal); F17.200 Nicotine dependence, unspecified, uncomplicated; Z87.09 Personal history of other diseases of the respiratory system
CPT/HCPCS: 71046; 99283

== ENCOUNTER 2020-02-22 09:44 | Emergency (ER) | payer OTHER ==
[2020-02-22] MEDS ORDERED: diphenhydrAMINE 50 MG/ML 1 ML VIAL IVP STA (10:07)
[2020-02-22] MEDS ORDERED: ONDANSETRON 4 MG/2 ML VIAL IVP STA (10:07)
[2020-02-22] MEDS ORDERED: SODIUM CHLORIDE 0.9% 1,000 ML IV STA (10:07)
[2020-02-22] MEDS ORDERED: KETOROLAC 30 MG/ML 1 ML VIAL IVP STA (10:07)
--- NOTE | 2020-02-22 10:34 | ED ---
Headache HPI - General Chief Complaint: Headache Stated Complaint: migraine Time Seen by Provider: 02/22/20 10:01 Mode of arrival: ambulatory Limitations: no limitations - History of Present Illness Initial Comments: Patient is a 35-year-old female presenting to the emergency Department with complaints of a migraine has been going on for 4 days now. Patient states she has a history of migraines and this feels similar. She states it started off as a normal mild headache but has been progressing throughout the past 4 days. She has tried ibuprofen and Tylenol without relief. She denies any changes in vision. She does admit to mild nausea, no vomiting. She denies any fever or chills. She denies that this is the worse headache of her life. She denies any injuries or trauma. She has no further complaints at this time. Upon arrival to the ER, her vitals are stable. - Related Data Home Medications Medication Instructions Recorded Confirmed Ibuprofen [Motrin] 800 mg PO Q6HR PRN 05/31/19 07/05/19 Escitalopram [Lexapro] 5 mg PO DAILY 06/11/19 07/05/19 Ljw-Tlob-Iszvp Acid 1 cap PO HS 06/11/19 07/05/19 [-U Capsule (formulary)] Previous Rx's Medication Instructions Recorded Cyclobenzaprine [Flexeril] 10 mg PO TID PRN #15 tab 07/05/19 Ibuprofen [Motrin] 600 mg PO Q8HR PRN #30 tab 07/05/19 methylPREDNISolone [Medrol Dose 4 mg PO DIRECTED #1 pack 07/20/19 Pack] Allergies Allergy/AdvReac Type Severity Reaction Status Date / Time No Known Allergies Allergy Verified 02/22/20 09:49 Review of Systems ROS Statement: Those systems with pertinent positive or pertinent negative responses have been documented in the HPI. ROS Other: All systems not noted in ROS Statement are negative. Past Medical History Past Medical History: No Reported History Additional Past Medical History / Comment(s): migraines, Low back pain History of Any Multi-Drug Resistant Organisms: None Reported Past Surgical History: Section, Cholecystectomy Past Psychological History: No Psychological Hx Reported Smoking Status: Current every day smoker Past Alcohol Use History: None Reported Past Drug Use History: None Reported General Exam - General Exam Comments Initial Comments: GENERAL: Well-appearing, well-nourished and in no acute distress. HEAD: Atraumatic, normocephalic. EYES: Pupils equal round and reactive to light, extraocular movements intact, sclera anicteric, conjunctiva are normal. ENT: TMs normal, nares patent, oropharynx clear without exudates. Moist mucous membranes. NECK: Normal range of motion, supple without lymphadenopathy or JVD. LUNGS: Breath sounds clear to auscultation bilaterally and equal. No wheezes rales or rhonchi. HEART: Regular rate and rhythm without murmurs, rubs or gallops. ABDOMEN: Soft, nontender, normoactive bowel sounds. No guarding, no rebound. No masses appreciated. : Deferred EXTREMITIES: Normal range of motion, no pitting or edema. No clubbing or cyanosis. Strength is 5 out of 5 upper and lower extremities bilaterally. NEUROLOGICAL: Cranial nerves II through XII grossly intact. Normal speech, normal gait. PSYCH: Normal mood, normal affect. SKIN: Warm, Dry, normal turgor, no rashes or lesions noted. Limitations: no limitations Course Vital Signs 02/22/20 09:48 Temperature 98.8 F Pulse Rate 79 Respiratory 18 Rate Blood Pressure 136/70 O2 Sat by Pulse 97 Oximetry Medical Decision Making - Medical Decision Making Patient is a 35-year-old female here for migraine 4 days. She does have a history of this. Her exam is unremarkable, no neuro deficits. Patient was given typical migraine cocktail, fluids. Upon reexamination, patient's headache is down to a 2/10. She states she feels well enough to go home. She will continue to increase fluid intake and rest today. She is stable for discharge. Return parameters were discussed with the patient and she verbalized understanding. Case discussed with Dr. Banerjee. Disposition Clinical Impression: Migraine headache Disposition: HOME SELF-CARE Condition: Stable Instructions (If sedation given, give patient instructions): Acute Headache (ED) Additional Instructions: Please return to the Emergency Department if symptoms worsen or any other concerns. Increase fluid intake today and rest. Follow-up with PCP. Is patient prescribed a controlled substance at d/c from ED?: No Referrals: Marianela Dominguez MD [Primary Care Provider] - 1-2 days
[2020-02-22 11:35] VITALS: BP 103/69; PULSE 54; RESP 20; TEMP 98.5
== END 2020-02-22 11:25 | disposition home or self-care (01) ==
LOC: EC 09:44
DX: G43.909 Migraine, unspecified, not intractable, without status migrainosus (principal); F17.200 Nicotine dependence, unspecified, uncomplicated
CPT/HCPCS: 99283; 96374; 96375 ×2; 96361; J1200; J2405; J1885

== ENCOUNTER 2022-05-15 16:25 | Emergency (ER) | payer OTHER ==
[2022-05-15 17:40] VITALS: TEMP 98.1
[2022-05-15 21:26] VITALS: PULSE 87; RESP 18
[2022-05-15 21:28] VITALS: BP 166/79
--- NOTE | 2022-05-15 21:29 | ED ---
General Adult HPI - General Chief complaint: Skin/Abscess/Foreign Body Stated complaint: rash Time Seen by Provider: 05/15/22 21:28 Source: patient, RN notes reviewed, old records reviewed Mode of arrival: ambulatory Limitations: no limitations - History of Present Illness Initial comments: 37-year-old female with irritation between her gluteal fold. Patient has been working more than usual and has been sweating per she's had some irritation noted. No fever. No drainage. She was concerned that this could be fungal in nature. Is a nondiabetic otherwise healthy. - Related Data Home Medications Medication Instructions Recorded Confirmed Escitalopram [Lexapro] 5 mg PO DAILY 06/11/19 02/22/20 Previous Rx's Medication Instructions Recorded Nystatin 100,000 Unit/gm Powd 1 applic TOPICAL TID #30 gm 05/15/22 [Mycostatin Powder] Allergies Allergy/AdvReac Type Severity Reaction Status Date / Time Fish Containing Products Allergy Unknown Verified 05/15/22 17:40 Review of Systems ROS Statement: Those systems with pertinent positive or pertinent negative responses have been documented in the HPI. ROS Other: All systems not noted in ROS Statement are negative. Past Medical History Past Medical History: No Reported History Additional Past Medical History / Comment(s): migraines, Low back pain History of Any Multi-Drug Resistant Organisms: None Reported Past Surgical History: Section, Cholecystectomy Past Psychological History: No Psychological Hx Reported Smoking Status: Former smoker Past Alcohol Use History: None Reported Past Drug Use History: None Reported General Exam Limitations: no limitations General appearance: alert, in no apparent distress Head exam: Present: atraumatic, normocephalic Eye exam: Present: normal appearance, PERRL ENT exam: Present: normal exam Neck exam: Present: normal inspection. Absent: tenderness, meningismus Respiratory exam: Present: normal lung sounds bilaterally. Absent: respiratory distress, wheezes Cardiovascular Exam: Present: regular rate, normal rhythm GI/Abdominal exam: Present: soft. 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 Instructed to keep the area dry, apply nystatin powder. Disposition Clinical Impression: Yeast dermatitis Disposition: HOME SELF-CARE Condition: Good Instructions (If sedation given, give patient instructions): Skin Yeast Infection (ED) Prescriptions: Nystatin 100,000 Unit/gm Powd [Mycostatin Powder] 1 applic TOPICAL TID #30 gm Is patient prescribed a controlled substance at d/c from ED?: No Referrals: Marianela Dominguez MD [Primary Care Provider] - 1-2 days Time of Disposition: 21:29
== END 2022-05-15 21:38 | disposition home or self-care (01) ==
LOC: EC 16:25
DX: B37.2 Candidiasis of skin and nail (principal); Z87.891 Personal history of nicotine dependence; Z91.013 Allergy to seafood
CPT/HCPCS: 99282

== ENCOUNTER 2023-12-12 11:20 | Emergency (ER) | payer SELFPAY ==
[2023-12-12 11:39] VITALS: RESP 18; TEMP 97.3
--- NOTE | 2023-12-12 11:49 | ED ---
URI HPI - General Chief Complaint: Upper Respiratory Infection Stated Complaint: Bilateral ear pain Time Seen by Provider: 12/12/23 11:27 Source: patient, RN notes reviewed Mode of arrival: ambulatory Limitations: no limitations - History of Present Illness Initial Comments: This is a 38-year-old female who presents to the emergency department for a sore throat, coughing, congestion, and ear pain. Symptoms started 2 weeks ago. Her tested positive for influenza A. States that she is taking [id number] medication without any relief in symptoms. Her ears feel plugged and she is having difficulty hearing as a result. Denies any chest pain or shortness of breath. She had fevers last week that have since resolved. Additionally, she notes thick white discharge and vaginal itching starting yesterday. States that she has a history of yeast infections and symptoms feel the same. MD Complaint: cough, sore throat, nasal congestion - Related Data Home Medications Medication Instructions Recorded Confirmed Escitalopram [Lexapro] 5 mg PO DAILY 06/11/19 02/22/20 Previous Rx's Medication Instructions Recorded Nystatin 100,000 Unit/gm Powd 1 applic TOPICAL TID #30 gm 05/15/22 [Mycostatin Powder] Ibuprofen [Motrin] 800 mg PO Q8H PRN #30 tab 10/14/22 Azithromycin [Zithromax] 250 mg PO DIRECTED 5 Days #6 tab 12/12/23 Fluconazole [Diflucan] 150 mg PO ONCE 1 Days #1 tab 12/12/23 predniSONE 50 mg PO DAILY 5 Days #5 tab 12/12/23 Allergies Allergy/AdvReac Type Severity Reaction Status Date / Time Fish Containing Products Allergy Unknown Verified 12/12/23 11:25 Review of Systems ROS Statement: Those systems with pertinent positive or pertinent negative responses have been documented in the HPI. ROS Other: All systems not noted in ROS Statement are negative. Past Medical History Past Medical History: No Reported History Additional Past Medical History / Comment(s): migraines, Low back pain History of Any Multi-Drug Resistant Organisms: None Reported Past Surgical History: Section, Cholecystectomy Past Psychological History: No Psychological Hx Reported, Anxiety Smoking Status: Current every day smoker, Current some day smoker Past Alcohol Use History: None Reported Past Drug Use History: None Reported General Exam Limitations: no limitations General appearance: alert, in no apparent distress Head exam: Present: atraumatic, normocephalic, normal inspection ENT exam: Present: other (Fluid behind the bilateral TMs without any erythema or bulging.) Respiratory exam: Present: normal lung sounds bilaterally. Absent: respiratory distress, wheezes, rales, rhonchi, stridor Cardiovascular Exam: Present: regular rate, normal rhythm, normal heart sounds. Absent: systolic murmur, diastolic murmur, rubs, gallop, clicks Neurological exam: Present: alert, oriented X3, CN II-XII intact Psychiatric exam: Present: normal affect, normal mood Skin exam: Present: warm, dry, intact, normal color. Absent: rash Course Vital Signs 12/12/23 12/12/23 12/12/23 11:21 11:37 13:22 Temperature 97.3 F L Pulse Rate 94 58 L Respiratory 18 18 18 Rate Blood Pressure 129/63 144/78 O2 Sat by Pulse 97 100 Oximetry Medical Decision Making - Medical Decision Making This is a 38-year-old female who presents to the emergency department for coughing, congestion, and ear pain Was pt. sent in by a medical professional or institution? @ -No Did you speak to anyone other than the patient for history? @ -No Did you review nursing and triage notes? @ -Yes, and I agree, it is accurate with regards to the patient's symptoms. Were old charts reviewed? @ -No Differential Diagnosis? @ -Differential Cough: Influenza, Covid, RSV, croup, allergic rhinitis, GERD, pneumonia, bronchitis, COPD, viral pharyngitis, streptococcal pharyngitis, this is not meant to be an all-inclusive list. EKG interpreted by me (3pts min.)? @ -Not obtained X-rays interpreted by me (1pt min.)? @ -Chest x-ray obtained, my interpretation identifies no localized consolidations or infiltrates. CT interpreted by me (1pt min.)? @ -Not obtained U/S interpreted by me (1pt. min.)? @ -Not obtained What testing was considered but not performed? (CT, X-rays, U/S, labs)? Why? @ -None What meds were considered but not given? Why? @ -None Did you discuss the management of the patient with other professionals? @ -No Did you reconcile home meds? @ -No Was smoking cessation discussed for >3mins.? @ -I discussed smoking cessation for greater than 3 minutes. The risk of smoking were discussed with the patient including but not limited to risks of cancer, stroke, coronary artery disease and COPD. Also discussed with patient were multiple methods of quitting smoking. Lastly we discussed the financial cost of smoking. Was critical care preformed (if so, how long)? @ -No Were there social determinants of health that impacted care today? How? (Homelessness, low income, unemployed, alcoholism, drug addiction, transportation, low edu. Level, literacy, decrease access to med. care, long-term, rehab)? @ -No Was there de-escalation of care discussed even if they declined? (Discuss DNR or withdrawal of care, Hospice)? @ -No What co-morbidities impacted this encounter? (DM, HTN, Smoking, COPD, CAD, Cancer, CVA, Hep., AIDS, mental health diagnosis, sleep apnea, morbid obesity)? @ -Smoking Was patient admitted / discharged? @ -Discharged. COVID, influenza, and RSV testing were negative. Rapid strep test negative. Urinalysis negative for signs of infection. Chest x-ray reveals no acute process. She was given a dose of Tessalon Perles, Toradol, and Afrin nasal spray in the emergency department. She was also given a dose of Diflucan due to concern for yeast infection. Given the duration of the patient's symptoms over the last 2 weeks, we will start her on antibiotics at this point. Prescription for azithromycin and prednisone provided with dosing instructions reviewed. She was also given a prescription for the Diflucan to repeat in 72 hours if symptoms persist. She declined the need for any nausea or cough medication. She was sent home with the Afrin nasal spray, however I advised she avoid using this for more than 3 days due to the risk of dependence. Advised getting plenty of rest and drinking plenty of fluids. Patient discharged home in stable condition. Undiagnosed new problem with uncertain prognosis? @ -None Drug Therapy requiring intensive monitoring for toxicity (Heparin, Nitro, Insulin, Cardizem)? @ -None Were any procedures done? @ -None Diagnosis/symptom? @ -URI, yeast infection Acute, or Chronic, or Acute on Chronic? @ -Acute Uncomplicated (without systemic symptoms) or Complicated (systemic symptoms)? @ -Uncomplicated Side effects of treatment? @ -None Exacerbation, Progression, or Severe Exacerbation] @ -Not applicable Poses a threat to life or bodily function? @ -No Return precautions reviewed in depth, the patient is instructed to return to the emergency department with any new, worsening, or concerning symptoms. Patient verbalized understanding. This case was discussed in detail with the attending ED physician, Dr. Beltran. Presentation, findings, and treatment plan discussed in detail as well. - Lab Data Lab Results 12/12/23 12/12/23 12/12/23 Range/Units 11:43 11:43 11:43 Urine Color Colorless Urine Appearance Cloudy H (Clear) Urine pH 5.0 (5.0-8.0) Ur Specific [place] 1.021 (1.001-1.035) Urine Protein Negative (Negative) Urine Glucose (UA) Negative (Negative) Urine Ketones Negative (Negative) Urine Blood Trace H (Negative) Urine Nitrite Negative (Negative) Urine Bilirubin Negative (Negative) Urine Urobilinogen <2.0 (<2.0) mg/dL Ur Leukocyte Esterase Moderate H (Negative) Urine RBC 1 (0-5) /hpf Urine WBC 3 (0-5) /hpf Ur Squamous Epith Cells 7 H (0-4) /hpf Urine Mucus Rare H (None) /hpf Urine HCG, Qual (Not Detectd) Influenza Type A (PCR) Not Detected (Not Detectd) Influenza Type B (PCR) Not Detected (Not Detectd) RSV (PCR) Not Detected (Not Detectd) SARS-CoV-2 (PCR) Not Detected (Not Detectd) Group A Strep (PCR) NOT DETECTED (Not Detectd) 12/12/23 Range/Units 11:50 Urine Color Urine Appearance (Clear) Urine pH (5.0-8.0) Ur Specific [place] (1.001-1.035) Urine Protein (Negative) Urine Glucose (UA) (Negative) Urine Ketones (Negative) Urine Blood (Negative) Urine Nitrite (Negative) Urine Bilirubin (Negative) Urine Urobilinogen (<2.0) mg/dL Ur Leukocyte Esterase (Negative) Urine RBC (0-5) /hpf Urine WBC (0-5) /hpf Ur Squamous Epith Cells (0-4) /hpf Urine Mucus (None) /hpf Urine HCG, Qual Not Detected (Not Detectd) Influenza Type A (PCR) (Not Detectd) Influenza Type B (PCR) (Not Detectd) RSV (PCR) (Not Detectd) SARS-CoV-2 (PCR) (Not Detectd) Group A Strep (PCR) (Not Detectd) - Radiology Data Radiology results: report reviewed, image reviewed Disposition Clinical Impression: URI (upper respiratory infection), Yeast infection Disposition: HOME SELF-CARE Instructions (If sedation given, give patient instructions): Upper Respiratory Infection (ED), Yeast Infection (ED), Earache (ED) Additional Instructions: Return to the emergency department with any new, worsening, or concerning symptoms. Take the antibiotic as prescribed for 5 days. Take the prednisone daily for 5 days. Take the Diflucan in 3 days, on 12/14, if you still have symptoms of a yeast infection. You can use the Afrin nasal spray provided to help with congestion. Avoid using this for more than 3 to 4 days, as you can become dependent on it. Use [id number] Flonase nasal spray to help with the ear pain. It may take 2 to 3 days before you notice improvement. Alternate with ibuprofen and Tylenol as needed for discomfort. Follow up with your primary care provider in 1-2 days. Prescriptions: Fluconazole [Diflucan] 150 mg PO ONCE 1 Days #1 tab predniSONE 50 mg PO DAILY 5 Days #5 tab Azithromycin [Zithromax] 250 mg PO DIRECTED 5 Days #6 tab Is patient prescribed a controlled substance at d/c from ED?: No Referrals: Marianela Dominguez MD [Primary Care Provider] - 1-2 days Time of Disposition: 13:29
[2023-12-12] MEDS: OXYMETAZOLINE 0.05% NASL SPRAY 1 SPRAY BOTTLE NASAL STA (12:02)
[2023-12-12] MEDS: FLUCONAZOLE 150 MG TAB PO STA (12:04)
[2023-12-12] MEDS: BENZONATATE 100 MG CAP PO STA (12:05)
[2023-12-12] MEDS: DEXAMETHASONE SOD PHOSPHATE 10 MG/ML 1 ML VIAL IM STA (12:05)
[2023-12-12] MEDS: KETOROLAC 15 MG/ML 1 ML VIAL IM STA (12:06)
[2023-12-12 12:08] LABS: Appearance,Urine Cloudy (Clear); Bilirubin,Urine Negative (Negative); Blood,Urine Trace (Negative); Color,Urine Colorless; Glucose,Urine (UA) Negative (Negative); Ketones,Urine Negative (Negative); Leukocyte Esterase,Urine Moderate (Negative); Mucus,Urine Rare /hpf; Nitrite,Urine Negative (Negative); Protein,Urine Negative (Negative); RBC,Urine 1 /hpf (0-5); Specific Gravity,Urine 1.021 (1.001-1.035); Squamous Epithelial Cell,Urine 7 /hpf (0-4); Urobilinogen,Urine <2.0 mg/dL (<2.0); WBC,Urine 3 /hpf (0-5)
--- NOTE | 2023-12-12 12:19 | XR ---
EXAMINATION TYPE: XR chest 2V DATE OF EXAM: 12/12/2023 COMPARISON: 07/31/2019 INDICATION: Cough congestion TECHNIQUE: Frontal and lateral views of the chest are obtained. FINDINGS: The heart size is normal. The pulmonary vasculature is normal. The lungs are clear. IMPRESSION: 1. No acute pulmonary process.
[2023-12-12 13:52] VITALS: BP 144/78; PULSE 58
== END 2023-12-12 13:37 | disposition home or self-care (01) ==
LOC: EC 11:20
DX: J06.9 Acute upper respiratory infection, unspecified (principal); B37.9 Candidiasis, unspecified; F17.210 Nicotine dependence, cigarettes, uncomplicated; Z91.013 Allergy to seafood
CPT/HCPCS: 87651; 81001; 81025; 87636; 71046; 99406; 99283; 96372 ×2; J1100; J1885

== ENCOUNTER → 2025-03-30 | Outpatient (CLI) | payer OTHER ==
--- NOTE | 2025-03-30 16:15 | MR ---
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 COMPARISON: None. TECHNIQUE: Multi planar, multi sequence imaging was performed through the brain. The patient was then given 11 cc of Gadobutrol intravenously and multi planar, T1 fat-saturation images were obtained. FINDINGS: The candelaria-white junctions, ventricular system, basal cisterns appear unremarkable. Age-appropriate cer ebral parenchymal volume. Diffusion-weighted imaging shows no evidence of restricted diffusion to sug gest acute/subacute infarct. Empty sella morphology. Intracranial arterial flow voids are maintained. Midline structures show no abnormality. No FLAIR signal abnormalities. The susceptibility weighted i mages do not reveal any evidence for micro-hemorrhage. 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 After administration of gadolinium, no abnormal enhancement is seen. The bone marrow signal is within normal limits. The globes are unremarkable. No evidence for papille dayanara. Couple of T2 hyperintense mucus retention cysts within the left maxillary sinus with largest me asuring up to 1.2 cm. IMPRESSION: No evidence of intracranial mass, acute/subacute infarct, or abnormal enhancement. [facility], , 03/30/2025 4:12 PM
== END | disposition home or self-care (01) ==
LOC: RADMRIMAIN 15:02
PROVIDERS: ATTEND Ophthalmology
DX: H47.333 Pseudopapilledema of optic disc, bilateral (principal); G44.219 Episodic tension-type headache, not intractable
CPT/HCPCS: 70553; A9585